=== PATIENT | male | born 1970 | race Caucasian/White ===

== ENCOUNTER 2018-08-27 17:17 | Emergency (ER) | payer BC ==
[~2018-08-27] VITALS: Ht 177.8 cm; Wt 122.7 kg
[~2018-08-27 17:17] MED LIST: ASPI-611 PO; ATOR20TA66 PO; FAMO-128 PO; LISI1TAB13 PO
[2018-08-27] MEDS ORDERED: diltiazem 5mg/ml 5ml inj. IV ONE (17:55)
[2018-08-27] MEDS ORDERED: enoxaparin 100mg/ml syringe SUBCUT ONE (17:55)
[2018-08-27 18:15] LABS: BASOPHILS # (AUTO) 0.1 X10'3 (0-0.2); BASOPHILS % (AUTO) 1.1 % (0-1); EOSINOPHILS # (AUTO) 0.4 X10'3 (0-0.9); EOSINOPHILS % (AUTO) 4.7 % (0-6); HEMATOCRIT 46.7 % (42.0-52.0); LYMPHOCYTES # (AUTO) 3.3 X10'3 (1.1-4.8); LYMPHOCYTES % (AUTO) 35.7 % (21-51); MEAN CORPUSCULAR HEMOGLOBIN 29.2 PG (27.0-31.0); MEAN CORPUSCULAR HGB CONC 34.4 g/dL (33.0-36.5); MONOCYTES # (AUTO) 0.6 X10'3 (0-0.9); MONOCYTES % (AUTO) 6.8 % (2-12); NEUTROPHILS # (AUTO) 4.8 X10'3 (1.8-7.7); NEUTROPHILS % (AUTO) 51.7 % (42-75); PLATELET COUNT 301 X10'3 (140-440); RED CELL DISTRIBUTION WIDTH 13.5 % (11.5-14.5); WHITE BLOOD COUNT 9.2 X10'3 (4.5-11.0)
[2018-08-27 18:31] LABS: ALANINE AMINOTRANSFERASE 39 U/L (12-78); ALBUMIN 3.5 G/DL (3.4-5.0); ALBUMIN/GLOBULIN RATIO 0.9 (1.1-1.5); ALKALINE PHOSPHATASE 69 IU/L (46-116); ANION GAP 10 (8-16); ASPARTATE AMINO TRANSFERASE 20 U/L (10-37); BILIRUBIN,TOTAL 0.4 MG/DL (0.1-1.0); BLOOD UREA NITROGEN 15 MG/DL (7-18); CALCIUM 8.6 MG/DL (8.5-10.1); CHLORIDE 103 MMOL/L (99-107); CREATININE 1.07 MG/DL (0.60-1.10); GLUCOSE 132 MG/DL (70-104); POTASSIUM 3.5 MMOL/L (3.5-5.1); SODIUM 138 MMOL/L (135-145); TOTAL CARBON DIOXIDE 24.9 MMOL/L (24-32); TOTAL PROTEIN 7.6 G/DL (6.4-8.2); eGFR 74 ML/MIN
[2018-08-27 18:38] LABS: PARTIAL THROMBOPLASTIN TIME 25 SECONDS (22-32); PROTHROMBIN TIME 9.8 SECONDS (9.0-12.0)
[2018-08-27] MEDS ORDERED: ondansetron/PF 4mg/2ml inj IV ONE (18:40)
[2018-08-27 18:41] LABS: PHOSPHORUS 2.9 MG/DL (2.3-4.5)
[2018-08-27] MEDS ORDERED: METO25TA6 PO (20:46)
[2018-08-27 21:20] VITALS: BP 144/89
== END 2018-08-27 21:22 | disposition home or self-care (01) ==
LOC: ER 17:18
DX: I48.91 Unspecified atrial fibrillation (principal); E78.00 Pure hypercholesterolemia, unspecified; I10 Essential (primary) hypertension; Z98.890 Other specified postprocedural states; Z88.8 Allergy status to other drugs, medicaments and biological substances; Z79.82 Long term (current) use of aspirin; Z79.899 Other long term (current) drug therapy
CPT/HCPCS: 36415; 71045; 80053; 83735; 84100; 84443; 84484; 85025; 85379; 85610; 85730; 93005; 96372; 96374; 96375; 99284; J2405; J1650; J3490

== ENCOUNTER 2020-01-14 17:15 | Emergency (ER) | payer BC ==
[~2020-01-14] VITALS: Ht 175.3 cm; Wt 119.5 kg
[~2020-01-14 17:15] MED LIST changes: -LISI1TAB13 PO; +LISI1TAB29 PO; +METO25TA6 PO
[2020-01-14 17:23] VITALS: BP 114/75
[2020-01-14] MEDS ORDERED: ondansetron 4mg rapidly disintigrating tab PO ONE (17:50)
[2020-01-14] MEDS ORDERED: morphine 4 MG/ML inj SYRINge IM ONE (17:50)
[2020-01-14] MEDS ORDERED: ketorolac tromethamine 15mg/ml inj. IM ONE (17:55)
--- NOTE | 2020-01-14 18:06 | NUR ---
Ultrasound in progress.
[2020-01-14] MEDS ORDERED: IBUP-1984 PO (18:44)
[2020-01-14] MEDS ORDERED: CYCL-1 PO (18:44)
== END 2020-01-14 19:00 | disposition home or self-care (01) ==
LOC: ER 17:15
DX: S86.812A Strain of other muscle(s) and tendon(s) at lower leg level, left leg, initial encounter (principal); M79.662 Pain in left lower leg; E78.00 Pure hypercholesterolemia, unspecified; I10 Essential (primary) hypertension; Z98.890 Other specified postprocedural states; Z88.8 Allergy status to other drugs, medicaments and biological substances; Z79.82 Long term (current) use of aspirin; Z79.899 Other long term (current) drug therapy; X58.XXXA Exposure to other specified factors, initial encounter; Y93.89 Activity, other specified; Y92.89 Other specified places as the place of occurrence of the external cause; Y99.8 Other external cause status
CPT/HCPCS: 76882; 96372; 99284; J1885; J2270

== ENCOUNTER 2020-02-13 06:20 | Inpatient (IN) | payer BC ==
[~2020-02-13] VITALS: Ht 175.3 cm; Wt 122.7 kg
[~2020-02-13 06:20] MED LIST changes: +CYCL-1 PO
--- NOTE | 2020-02-13 07:04 | NUR ---
Discussed pt's c/o DAVIS pain, 12/29 with emdm Janes; new order for Tylenol received.
[2020-02-13] MEDS ORDERED: acetaminophen 325mg tablet PO ONE (07:05)
[2020-02-13] MEDS ORDERED: ringers solution, lacted 1,000 ML IV ONE ×3 (08:35→14:35)
[2020-02-13] MEDS ORDERED: normal saline 1000ml 1,000 ML IV ONE (08:55)
[2020-02-13 09:03] LABS: BASOPHILS # (AUTO) 0.1 X10'3 (0-0.2); BASOPHILS % (AUTO) 0.3 % (0-1); EOSINOPHILS # (AUTO) 0.1 X10'3 (0-0.9); EOSINOPHILS % (AUTO) 0.3 % (0-6); HEMOGLOBIN 13.9 g/dl (14.0-17.9); LYMPHOCYTES # (AUTO) 0.9 X10'3 (1.1-4.8); LYMPHOCYTES % (AUTO) 3.7 % (21-51); MEAN CORPUSCULAR HEMOGLOBIN 28.4 PG (27.0-31.0); MEAN CORPUSCULAR HGB CONC 33.9 g/dL (33.0-36.5); MEAN CORPUSCULAR VOLUME 83.8 FL (78-98); MEAN PLATELET VOLUME 8.7 FL (7.4-10.4); MONOCYTES # (AUTO) 0.9 X10'3 (0-0.9); MONOCYTES % (AUTO) 3.6 % (2-12); NEUTROPHILS # (AUTO) 22.1 X10'3 (1.8-7.7); NEUTROPHILS % (AUTO) 92.1 % (42-75); PLATELET COUNT 257 X10'3 (140-440); RED BLOOD COUNT 4.89 X10'6 (4.70-6.10); RED CELL DISTRIBUTION WIDTH 12.9 % (11.5-14.5); WHITE BLOOD COUNT 24.1 X10'3 (4.5-11.0)
[2020-02-13 09:12] LABS: D-DIMER 0.23 MG/L FEU (0-0.50)
[2020-02-13 09:16] LABS: ALANINE AMINOTRANSFERASE 34 U/L (12-78); ALBUMIN 3.4 G/DL (3.4-5.0); ALBUMIN/GLOBULIN RATIO 0.9 (1.1-1.5); ALKALINE PHOSPHATASE 59 IU/L (46-116); ANION GAP 10 (8-16); ASPARTATE AMINO TRANSFERASE 18 U/L (10-37); BILIRUBIN,TOTAL 0.8 MG/DL (0.1-1.0); BLOOD UREA NITROGEN 15 MG/DL (7-18); BUN/CREATININE RATIO 12.4 (5.4-32.0); CALCIUM 8.3 MG/DL (8.5-10.1); CHLORIDE 103 MMOL/L (99-107); CREATININE 1.21 MG/DL (0.60-1.10); GLUCOSE 167 MG/DL (70-104); POTASSIUM 3.3 MMOL/L (3.5-5.1); SODIUM 137 MMOL/L (135-145); TOTAL CARBON DIOXIDE 24.1 MMOL/L (24-32); eGFR 64 ML/MIN
[2020-02-13 09:29] LABS: C-REACTIVE PROTEIN 2.84 MG/DL (0.0-0.5); FERRITIN 113 NG/ML (26-388); MAGNESIUM 1.6 MG/DL (1.5-2.4)
[2020-02-13] MEDS ORDERED: ketorolac trometh. 30mg/ml inj. IV ONE (09:30)
[2020-02-13] MEDS ORDERED: CefTRIAXone inj 2,000 MG in normal saline 100ml IV soln 100 ML IV ONE (09:45)
[2020-02-13 10:26] LABS: CLARITY,URINE CLEAR (Clear); COLOR,URINE YELLOW (Yellow); GLUCOSE, URINE NEGATIVE (Neg); KETONES,URINE NEGATIVE (Neg); LEUKOCYTE ESTERASE ,URINE NEGATIVE (Neg); NITRITES, URINE NEGATIVE (Neg); OCCULT BLOOD,URINE NEGATIVE (Neg); PH,URINE 8.5 (4.8-8.0); PROTEIN,URINE NEGATIVE (Neg)
[2020-02-13 10:27] LABS: UA COLLECTION TYPE URINAL
--- NOTE | 2020-02-13 11:00 | NUR ---
Discussed pt's possible COVID status and low potassium w/ edmd Janes. Per Janes, ok to stop isolation as he no longer views pt @ risk; no new orders r/t potassium.
[2020-02-13] MEDS ORDERED: morphine 4 MG/ML inj SYRINge IV ONE (12:10)
[2020-02-13] MEDS ORDERED: CELE-193 PO (14:08)
--- NOTE | 2020-02-13 14:15 | NUR ---
Pt gave verbal consent to update Ale Cummings which was provided. She will be picking up pt who is being dc'd.
[2020-02-13 15:06] LABS: BASOPHILS # (AUTO) 0.1 X10'3 (0-0.2); BASOPHILS % (AUTO) 0.2 % (0-1); EOSINOPHILS % (AUTO) 0.1 % (0-6); HEMATOCRIT 39.1 % (42.0-52.0); HEMOGLOBIN 13.2 g/dl (14.0-17.9); LYMPHOCYTES # (AUTO) 0.7 X10'3 (1.1-4.8); LYMPHOCYTES % (AUTO) 3.4 % (21-51); MEAN CORPUSCULAR HEMOGLOBIN 28.5 PG (27.0-31.0); MEAN CORPUSCULAR HGB CONC 33.8 g/dL (33.0-36.5); MEAN CORPUSCULAR VOLUME 84.2 FL (78-98); MEAN PLATELET VOLUME 8.8 FL (7.4-10.4); MONOCYTES % (AUTO) 4.6 % (2-12); NEUTROPHILS # (AUTO) 19.3 X10'3 (1.8-7.7); NEUTROPHILS % (AUTO) 91.7 % (42-75); PLATELET COUNT 222 X10'3 (140-440); RED BLOOD COUNT 4.64 X10'6 (4.70-6.10); WHITE BLOOD COUNT 21.1 X10'3 (4.5-11.0)
[2020-02-13] MEDS ORDERED: morphine 2 MG/ML inj. syringe IV PRN ×2 (15:55)
[2020-02-13] MEDS ORDERED: ondansetron/PF 4mg/2ml inj IV PRN (15:55)
[2020-02-13] MEDS ORDERED: acetaminophen 325mg tablet PO PRN (15:55)
[2020-02-13] MEDS ORDERED: magnesium hydroxide 30ml (MOM) UD suspension PO PRN (15:55)
[2020-02-13] MEDS ORDERED: HYDROcodone/acetaminophen 10/325mg tab PO PRN (15:55)
[2020-02-13] MEDS ORDERED: HYDROcodone/acetaminophen 5mg/325mg tablet PO PRN (15:55)
[2020-02-13] MEDS ORDERED: mag hydrox/Alum hydrox/simeth 30ml oral suspension PO PRN (15:55)
[2020-02-13] MEDS: normal saline 1000ml 1,000 ML IV SCH (16:16)
--- NOTE | 2020-02-13 16:55 | NUR ---
Problems reprioritized. Patient report given, questions answered & plan of care reviewed with syed Conway ED.
[2020-02-13] MEDS: acetaminophen 325mg tablet PO PRN ×2 (17:28→23:49)
[2020-02-13 17:35] VITALS: BP 128/68
[2020-02-13] MEDS ORDERED: ibuprofen 200mg tablet PO PRN (17:55)
--- NOTE | 2020-02-13 18:44 | NUR ---
Problems reprioritized. Patient report given, questions answered & plan of care reviewed with kimberly PELLETIER.
--- NOTE | 2020-02-13 18:49 | NUR ---
Patient in room PCU 3027. I have received report from Vanessa PELLETIER and had the opportunity to ask questions and assume patient care.
[2020-02-13] MEDS: ceFAZolin 2gm in dextrose, iso 50 ML IV SCH ×2 (19:06→23:51)
[2020-02-13 19:30] VITALS: BP 125/66
[2020-02-13 22:00] VITALS: BP 125/63
[2020-02-14] VITALS (7 sets, daily range): BP systolic 111–141; BP diastolic 68–82
[2020-02-14 05:59] LABS: BASOPHILS % (AUTO) 0.3 % (0-1); EOSINOPHILS % (AUTO) 0.1 % (0-6); HEMATOCRIT 38.2 % (42.0-52.0); LYMPHOCYTES # (AUTO) 1.6 X10'3 (1.1-4.8); LYMPHOCYTES % (AUTO) 12.3 % (21-51); MEAN CORPUSCULAR HEMOGLOBIN 28.9 PG (27.0-31.0); MEAN CORPUSCULAR VOLUME 84.9 FL (78-98); MEAN PLATELET VOLUME 9.2 FL (7.4-10.4); MONOCYTES % (AUTO) 7.5 % (2-12); NEUTROPHILS # (AUTO) 10.6 X10'3 (1.8-7.7); NEUTROPHILS % (AUTO) 79.8 % (42-75); PLATELET COUNT 219 X10'3 (140-440); RED CELL DISTRIBUTION WIDTH 13.2 % (11.5-14.5); WHITE BLOOD COUNT 13.3 X10'3 (4.5-11.0)
[2020-02-14 06:29] LABS: ALBUMIN 2.8 G/DL (3.4-5.0); ANION GAP 7 (8-16); BLOOD UREA NITROGEN 13 MG/DL (7-18); BUN/CREATININE RATIO 11.8 (5.4-32.0); CALCIUM 7.8 MG/DL (8.5-10.1); CHLORIDE 106 MMOL/L (99-107); GLUCOSE 120 MG/DL (70-104); POTASSIUM 3.2 MMOL/L (3.5-5.1); SODIUM 139 MMOL/L (135-145); TOTAL CARBON DIOXIDE 25.6 MMOL/L (24-32); eGFR 71 ML/MIN
--- NOTE | 2020-02-14 06:32 | NUR ---
Patient in room PCU 3027. I have received report from Brittany PELLETIER and had the opportunity to ask questions and assume patient care.
--- NOTE | 2020-02-14 06:38 | NUR ---
Problems reprioritized. Patient report given, questions answered & plan of care reviewed with Kelly PELLETIER.
[2020-02-14] MEDS ORDERED: CefTRIAXone 2gm/D5W 50ml 50 ML IV SCH (08:00)
[2020-02-14] MEDS: ceFAZolin 2gm in dextrose, iso 50 ML IV SCH ×3 (08:16→23:17)
[2020-02-14] MEDS: enoxaparin 40mg/0.4ml syringe SUBCUT SCH (08:17)
[2020-02-14] MEDS: normal saline 1000ml 1,000 ML IV SCH ×2 (08:36→11:07)
--- NOTE | 2020-02-14 08:37 | NUR ---
Non administered 0130 dose of NS for this patient, IVF already infusing per order, just clenaing up eMAR from previous shift. Will continue to monitor closely.
[2020-02-14] MEDS ORDERED: potassium CL 10mEq/100ml bag 100 ML IV PRN (09:15)
[2020-02-14] MEDS ORDERED: magnesium 4gm in 100ml NS 100 ML IV PRN (09:15)
[2020-02-14] MEDS ORDERED: potassium Cl 20 mEq SR tablet PO PRN (09:15)
[2020-02-14] MEDS ORDERED: magnesium Cl slow-release 64mg tablet PO PRN (09:15)
--- NOTE | 2020-02-14 09:17 | NUR ---
Spoke to Dr Batista re this patients plan of care, received verbal orders to start the K+/mag replacement protocol, will continue to monitor the patient closely.
[2020-02-14] MEDS: K and/or MAG REPLACEMENT MC SCH ×2 (09:18→19:29)
[2020-02-14 10:12] LABS: MAGNESIUM 1.7 MG/DL (1.5-2.4); POTASSIUM 3.1 MMOL/L (3.5-5.1)
[2020-02-14] MEDS: potassium Cl 20 mEq SR tablet PO PRN ×2 (10:25→14:35)
[2020-02-14] MEDS ORDERED: cyclobenzaprine 10mg tablet PO PRN (16:00)
--- NOTE | 2020-02-14 18:23 | NUR ---
Problems reprioritized. Patient report given, questions answered & plan of care reviewed with Lizbeth PELLETIER.
[2020-02-14] MEDS: metoprolol tartrate 25mg tablet PO SCH (19:58)
[2020-02-14] MEDS: lactobacillus rhamnosus 10,000 MMU CELLS/CAPSULE PO SCH (19:58)
[2020-02-15] VITALS: BP 141/80
[2020-02-15 02:00] VITALS: BP 98/64
[2020-02-15] MEDS: normal saline 1000ml 1,000 ML IV SCH ×2 (03:35→07:04)
[2020-02-15 06:00] VITALS: BP 130/79
--- NOTE | 2020-02-15 06:06 | NUR ---
REPORT GIVEN TO PRABHU HAMMOND.
[2020-02-15 06:10] LABS: BASOPHILS # (AUTO) 0.1 X10'3 (0-0.2); BASOPHILS % (AUTO) 0.8 % (0-1); EOSINOPHILS # (AUTO) 0.3 X10'3 (0-0.9); EOSINOPHILS % (AUTO) 3.1 % (0-6); HEMATOCRIT 37.8 % (42.0-52.0); HEMOGLOBIN 12.8 g/dl (14.0-17.9); LYMPHOCYTES # (AUTO) 2.4 X10'3 (1.1-4.8); LYMPHOCYTES % (AUTO) 29.8 % (21-51); MEAN CORPUSCULAR HEMOGLOBIN 28.6 PG (27.0-31.0); MEAN CORPUSCULAR HGB CONC 33.8 g/dL (33.0-36.5); MEAN CORPUSCULAR VOLUME 84.7 FL (78-98); MEAN PLATELET VOLUME 9.1 FL (7.4-10.4); MONOCYTES # (AUTO) 0.9 X10'3 (0-0.9); MONOCYTES % (AUTO) 11.4 % (2-12); NEUTROPHILS # (AUTO) 4.5 X10'3 (1.8-7.7); NEUTROPHILS % (AUTO) 54.9 % (42-75); PLATELET COUNT 227 X10'3 (140-440); RED BLOOD COUNT 4.46 X10'6 (4.70-6.10); RED CELL DISTRIBUTION WIDTH 12.9 % (11.5-14.5); WHITE BLOOD COUNT 8.2 X10'3 (4.5-11.0)
[2020-02-15 06:18] LABS: ALBUMIN 2.7 G/DL (3.4-5.0); ANION GAP 7 (8-16); BLOOD UREA NITROGEN 11 MG/DL (7-18); CALCIUM 7.9 MG/DL (8.5-10.1); CHLORIDE 108 MMOL/L (99-107); CREATININE 0.92 MG/DL (0.60-1.10); GLUCOSE 117 MG/DL (70-104); MAGNESIUM 2.1 MG/DL (1.5-2.4); POTASSIUM 3.6 MMOL/L (3.5-5.1); SODIUM 140 MMOL/L (135-145); TOTAL CARBON DIOXIDE 24.9 MMOL/L (24-32); eGFR 87 ML/MIN
--- NOTE | 2020-02-15 06:18 | NUR ---
Problems reprioritized. Patient report given, questions answered & plan of care reviewed with Lizbeth PELLETIER.
[2020-02-15] MEDS: enoxaparin 40mg/0.4ml syringe SUBCUT SCH (07:04)
[2020-02-15] MEDS: ceFAZolin 2gm in dextrose, iso 50 ML IV SCH (07:04)
[2020-02-15] MEDS: lactobacillus rhamnosus 10,000 MMU CELLS/CAPSULE PO SCH (07:05)
[2020-02-15] MEDS: metoprolol tartrate 25mg tablet PO SCH (07:05)
[2020-02-15] MEDS: K and/or MAG REPLACEMENT MC SCH (07:55)
[2020-02-15] MEDS ORDERED: atorvastatin 20mg tablet PO SCH (08:00)
[2020-02-15] MEDS ORDERED: aspirin 81mg tablet.DR PO SCH (08:00)
[2020-02-15] MEDS ORDERED: CEPH250T PO (08:07)
--- NOTE | 2020-02-15 09:32 | NUR ---
Spoke with Dr Batista, will not discharge patient until VL ultrasound performed and results available.
[2020-02-15 11:00] VITALS: BP 114/74
--- NOTE | 2020-02-15 12:52 | NUR ---
Sent a page to Dr Batista PAGER ID: [phone] MESSAGE: Kelly PELLETIER [phone] Michael Bailey, preliminary vascular report is up on imaging, no thrombus detected, do you want to wait until the official report is up to discharge? thanks!
--- NOTE | 2020-02-15 13:52 | NUR ---
Stable for discharge per MD orders, all discharge instructions reviewed with the patient and all questions answered, new prescription sent to [facility] on [address], Tele monitor and PIV discontinued, all belongings collected and sent with patient, left the unit at 1352 with RN in wheelchair
[2020-02-16] MEDS ORDERED: famotidine 20mg tablet PO SCH (08:00)
== END 2020-02-15 13:53 | disposition home or self-care (01) | DRG 872 ==
LOC: ER 06:21 → ED HOLD 15:54 → EDBEDREQ 16:33 → PCU 3S 16:55
PROVIDERS: ADMIT Internal Medicine; ATTEND Internal Medicine
DX: A41.9 Sepsis, unspecified organism (principal); L03.115 Cellulitis of right lower limb; Z68.41 Body mass index [BMI] 40.0-44.9, adult; E78.5 Hyperlipidemia, unspecified; R65.20 Severe sepsis without septic shock; Z20.828 Contact with and (suspected) exposure to other viral communicable diseases; E66.01 Morbid (severe) obesity due to excess calories; E87.6 Hypokalemia
CPT/HCPCS: 36415; 71045; 72131; 80048; 80053; 81003; 82728; 83605; 83735; 83880; 84132; 84145; 85025; 85379; 86140; 87040; 87081; 87635; 93005; 93971; 96361; 96365; 96366; 96375; 99285; G0378; J0696; J1650; J1885; J2270; J7030; J7120

== ENCOUNTER 2020-02-24 18:17 | Emergency (ER) | payer BC ==
[~2020-02-24] VITALS: Ht 175.3 cm; Wt 120.0 kg
[~2020-02-24 18:17] MED LIST changes: +CELE-193 PO; +CEPH250T PO
[2020-02-24] MEDS ORDERED: gabapentin 300mg capsule PO ONE (20:05)
[2020-02-24] MEDS ORDERED: cyclobenzaprine 10mg tablet PO ONE (20:05)
[2020-02-24] MEDS ORDERED: HYDROcodone/acetaminophen 5mg/325mg tablet PO ONE (22:00)
[2020-02-24] MEDS ORDERED: CYCL-1 PO (22:06)
[2020-02-24] MEDS ORDERED: GABA300C PO (22:06)
[2020-02-24 22:07] VITALS: BP 125/82
[2020-02-25] MEDS ORDERED: NAPR-56 PO (17:44)
[2020-02-25] MEDS ORDERED: OXYC-145 PO (17:44)
== END 2020-02-24 22:18 | disposition home or self-care (01) ==
LOC: ER 18:19
DX: M54.32 Sciatica, left side (principal); M54.5 Low back pain; E78.00 Pure hypercholesterolemia, unspecified; I10 Essential (primary) hypertension; G89.29 Other chronic pain; Z98.890 Other specified postprocedural states; Z79.82 Long term (current) use of aspirin; Z79.2 Long term (current) use of antibiotics; Z79.899 Other long term (current) drug therapy
CPT/HCPCS: 99284

== ENCOUNTER 2020-02-25 12:44 | Emergency (ER) | payer BC ==
[~2020-02-25] VITALS: Ht 175.3 cm; Wt 120.5 kg
[~2020-02-25 12:44] MED LIST changes: -CELE-193 PO; +GABA300C PO
[2020-02-25] MEDS ORDERED: normal saline 1000ML IV soln IVB ONE (13:05)
[2020-02-25] MEDS ORDERED: morphine 4 MG/ML inj SYRINge IV PRN (13:05)
[2020-02-25] MEDS ORDERED: ondansetron/PF 4mg/2ml inj IV ONE (13:05)
[2020-02-25 13:28] LABS: BASOPHILS # (AUTO) 0.1 X10'3 (0-0.2); BASOPHILS % (AUTO) 1.1 % (0-1); EOSINOPHILS # (AUTO) 0.2 X10'3 (0-0.9); EOSINOPHILS % (AUTO) 2.8 % (0-6); HEMATOCRIT 45.1 % (42.0-52.0); HEMOGLOBIN 15.2 g/dl (14.0-17.9); LYMPHOCYTES # (AUTO) 2.3 X10'3 (1.1-4.8); LYMPHOCYTES % (AUTO) 26.5 % (21-51); MEAN CORPUSCULAR HEMOGLOBIN 28.4 PG (27.0-31.0); MEAN CORPUSCULAR HGB CONC 33.7 g/dL (33.0-36.5); MEAN CORPUSCULAR VOLUME 84.3 FL (78-98); MEAN PLATELET VOLUME 8.3 FL (7.4-10.4); MONOCYTES # (AUTO) 0.6 X10'3 (0-0.9); MONOCYTES % (AUTO) 6.6 % (2-12); NEUTROPHILS # (AUTO) 5.4 X10'3 (1.8-7.7); PLATELET COUNT 342 X10'3 (140-440); RED BLOOD COUNT 5.35 X10'6 (4.70-6.10); RED CELL DISTRIBUTION WIDTH 13.2 % (11.5-14.5); WHITE BLOOD COUNT 8.6 X10'3 (4.5-11.0)
[2020-02-25] MEDS ORDERED: dexamethasone sod phosphate 10mg/ml inj IV STA (13:31)
[2020-02-25] MEDS ORDERED: ketorolac trometh. 30mg/ml inj. IV ONE (13:35)
[2020-02-25] MEDS ORDERED: diazepam inj 5 MG/ML inj. IV ONE ×2 (13:35→17:50)
[2020-02-25 13:43] LABS: ALANINE AMINOTRANSFERASE 34 U/L (12-78); ALBUMIN 3.9 G/DL (3.4-5.0); ALKALINE PHOSPHATASE 60 IU/L (46-116); ANION GAP 8 (8-16); ASPARTATE AMINO TRANSFERASE 22 U/L (10-37); BILIRUBIN,TOTAL 0.8 MG/DL (0.1-1.0); BLOOD UREA NITROGEN 18 MG/DL (7-18); BUN/CREATININE RATIO 15.4 (5.4-32.0); CALCIUM 8.9 MG/DL (8.5-10.1); CHLORIDE 100 MMOL/L (99-107); CREATININE 1.17 MG/DL (0.60-1.10); GLUCOSE 118 MG/DL (70-104); POTASSIUM 3.5 MMOL/L (3.5-5.1); SODIUM 137 MMOL/L (135-145); TOTAL CARBON DIOXIDE 29.5 MMOL/L (24-32); eGFR 66 ML/MIN
--- NOTE | 2020-02-25 14:21 | NUR ---
PT TO MRI VIA WHEELCHAIR
--- NOTE | 2020-02-25 15:08 | NUR ---
PT BACK FROM MRI
[2020-02-25 15:35] LABS: CLARITY,URINE CLEAR (Clear); COLOR,URINE YELLOW (Yellow); GLUCOSE, URINE NEGATIVE (Neg); KETONES,URINE NEGATIVE (Neg); LEUKOCYTE ESTERASE ,URINE NEGATIVE (Neg); NITRITES, URINE NEGATIVE (Neg); OCCULT BLOOD,URINE NEGATIVE (Neg); PROTEIN,URINE NEGATIVE (Neg); UROBILINOGEN,URINE 0.2 E.U/dL (0.2-1.0)
[2020-02-25 15:38] LABS: UA COLLECTION TYPE URINAL
[2020-02-25] MEDS ORDERED: OXYC-145 PO (17:44)
[2020-02-25] MEDS ORDERED: NAPR-56 PO (17:44)
[2020-02-25] MEDS ORDERED: morphine 4 MG/ML inj SYRINge IV ONE (17:50)
[2020-02-25 18:13] VITALS: BP 105/67
== END 2020-02-25 18:15 | disposition home or self-care (01) ==
LOC: ER 12:45
DX: M54.5 Low back pain (principal); M62.838 Other muscle spasm; M54.16 Radiculopathy, lumbar region; E78.00 Pure hypercholesterolemia, unspecified; I10 Essential (primary) hypertension; G89.29 Other chronic pain; Z98.890 Other specified postprocedural states; Z79.82 Long term (current) use of aspirin; Z79.2 Long term (current) use of antibiotics; Z79.899 Other long term (current) drug therapy
CPT/HCPCS: 36415; 72148; 80053; 81003; 85025; 96361; 96374; 96375; 96376; 99285; J1100; J1885; J2270; J2405; J3360; J7030

== ENCOUNTER 2020-11-01 23:52 | Inpatient (IN) | payer BC ==
[~2020-11-01] VITALS: Ht 175.3 cm; Wt 95.5 kg
[~2020-11-01 23:52] MED LIST changes: +LOP25T PO; -METO25TA6 PO; +OXYC-145 PO
[2020-11-02] VITALS (10 sets, daily range): BP systolic 91–107; BP diastolic 51–67
[2020-11-02] MEDS ORDERED: RIVA20TA PO (00:26)
[2020-11-02] MEDS ORDERED: nitroGLYCERIN 0.4mg SUBLingual tab SL PRN ×2 (00:30→10:50)
--- NOTE | 2020-11-02 00:40 | NUR ---
DR. STARKEY UPDATED THAT PT WITHI INCREASING "HEAVINESS' ACROSS HIS CHEST, THAT HR HAS BEEN DROPPING TO 47 BPM AND HIS SYSTOLIC BP DROPING TO 88. PTS HR W/EMS 89 AND SYSTOLIC BP 112. K IS 2.2. MD RAMOS ADTL FLUID BOLUS (PT HAS RECEIVED 500 CC' FROM EMS). NOW AT BEDSIDE.
[2020-11-02 00:45] LABS: BASOPHILS # (AUTO) 0.1 X10'3 (0-0.2); BASOPHILS % (AUTO) 0.6 % (0-1); EOSINOPHILS # (AUTO) 0.5 X10'3 (0-0.9); EOSINOPHILS % (AUTO) 4.7 % (0-6); HEMATOCRIT 40.1 % (42.0-52.0); HEMOGLOBIN 13.6 g/dl (14.0-17.9); LYMPHOCYTES % (AUTO) 35.7 % (21-51); MEAN CORPUSCULAR HEMOGLOBIN 28.8 PG (27.0-31.0); MEAN CORPUSCULAR VOLUME 84.7 FL (78-98); MEAN PLATELET VOLUME 9.7 FL (7.4-10.4); MONOCYTES # (AUTO) 1.1 X10'3 (0-0.9); MONOCYTES % (AUTO) 9.8 % (2-12); NEUTROPHILS # (AUTO) 5.5 X10'3 (1.8-7.7); NEUTROPHILS % (AUTO) 49.2 % (42-75); PLATELET COUNT 291 X10'3 (140-440); RED BLOOD COUNT 4.73 X10'6 (4.70-6.10); RED CELL DISTRIBUTION WIDTH 13.6 % (11.5-14.5); WHITE BLOOD COUNT 11.1 X10'3 (4.5-11.0)
[2020-11-02 00:51] LABS: ALANINE AMINOTRANSFERASE 32 U/L (12-78); ALBUMIN 3.4 G/DL (3.4-5.0); ALKALINE PHOSPHATASE 91 IU/L (46-116); ANION GAP 11 (8-16); ASPARTATE AMINO TRANSFERASE 17 U/L (10-37); BILIRUBIN,TOTAL 0.7 MG/DL (0.1-1.0); BLOOD UREA NITROGEN 10 MG/DL (7-18); BUN/CREATININE RATIO 9.7 (5.4-32.0); CALCIUM 8.9 MG/DL (8.5-10.1); CHLORIDE 106 MMOL/L (99-107); CREATININE 1.03 MG/DL (0.60-1.10); GLUCOSE 96 MG/DL (70-104); SODIUM 144 MMOL/L (135-145); TOTAL CARBON DIOXIDE 26.6 MMOL/L (24-32); TOTAL PROTEIN 6.8 G/DL (6.4-8.2); eGFR 77 ML/MIN
[2020-11-02 00:54] LABS: POTASSIUM 2.2 MMOL/L (3.5-5.1)
[2020-11-02] MEDS ORDERED: magnesium 2GM in 50ml NS 50 ML IV ONE (01:20)
[2020-11-02 01:32] LABS: MAGNESIUM 1.9 MG/DL (1.5-2.4)
[2020-11-02 01:35] LABS: POTASSIUM 2.9 MMOL/L (3.5-5.1)
[2020-11-02] MEDS: potassium CL 10mEq/100ml bag 100 ML IV SCH ×3 (01:47→03:51)
[2020-11-02] MEDS ORDERED: OMEP20TA23 PO (02:03)
[2020-11-02] MEDS ORDERED: VITA-268 PO (02:05)
--- NOTE | 2020-11-02 02:53 | NUR ---
Dr. Huff at bedside for admission. Pt awaiting IPA.
[2020-11-02] MEDS ORDERED: magnesium hydroxide 30ml (MOM) UD suspension PO PRN (03:05)
[2020-11-02] MEDS ORDERED: ondansetron/PF 4mg/2ml inj IV PRN (03:05)
[2020-11-02] MEDS ORDERED: potassium Cl 20 mEq SR tablet PO PRN (03:05)
[2020-11-02] MEDS ORDERED: mag hydrox/Alum hydrox/simeth 30ml oral suspension PO PRN (03:05)
[2020-11-02] MEDS ORDERED: magnesium Cl slow-release 64mg tablet PO PRN (03:05)
[2020-11-02] MEDS ORDERED: magnesium 4gm in 100ml NS 100 ML IV PRN (03:05)
[2020-11-02] MEDS ORDERED: potassium Cl 40MEQ/1/2NS 520ml 520 ML IV PRN ×2 (03:05)
[2020-11-02] MEDS ORDERED: magnesium 2GM in 50ml NS 50 ML IV PRN (03:05)
[2020-11-02] MEDS ORDERED: acetaminophen 325mg tablet PO PRN (03:05)
--- NOTE | 2020-11-02 04:46 | NUR ---
Patient in room ED 11. I have received report from Sana PELLETIER and had the opportunity to ask questions and assume patient care.
[2020-11-02] MEDS: potassium Cl 20mEq in NS 1,000 ML IV SCH ×2 (05:47→17:54)
--- NOTE | 2020-11-02 06:24 | NUR ---
Problems reprioritized. Patient report given, questions answered & plan of care reviewed with Sahara PELLETIER.
--- NOTE | 2020-11-02 06:42 | NUR ---
Patient in room ORTHO 4011. I have received report from Ariadne PELLETIER and had the opportunity to ask questions and assume patient care.
[2020-11-02] MEDS: K and/or MAG REPLACEMENT MC SCH ×2 (08:00→20:00)
[2020-11-02] MEDS: pantoprazole 40mg Tablet.DR PO SCH (08:10)
[2020-11-02] MEDS: atorvastatin 20mg tablet PO SCH (08:10)
[2020-11-02] MEDS: vitamin B comp w/Vit. C tab 1 TAB TABLET PO SCH (08:11)
--- NOTE | 2020-11-02 09:36 | NUR ---
I called lab to follow up about 08:00am K draw. He said that the specimen not received yet and that he is not sure if coating supervisor actually drawn it but he said he will let the coating supervisor know or may be send another coating supervisor
[2020-11-02] MEDS: potassium Cl 20 mEq SR tablet PO PRN ×2 (10:07→17:52)
[2020-11-02] MEDS ORDERED: metoprolol tartrate 1mg/ml inj IV PRN (10:50)
[2020-11-02] MEDS ORDERED: aminophylline 250mg/10ml inj. IV PRN (10:50)
[2020-11-02] MEDS ORDERED: regadenoson 0.4mg/5ml syringe IV PRN (10:50)
--- NOTE | 2020-11-02 11:14 | NUR ---
Patient was instructed to be NPO as patient will go for Stress Test probably today. Patient ate breakfast this morning. I also discussed with patient and at bedside the plan of care as patient is also going for other imaging studies like CT head, CTA head, MRI and MRA of head.
[2020-11-02] MEDS ORDERED: iohexol 350MG/ML 100ml bottle IV ONE (11:31)
--- NOTE | 2020-11-02 12:24 | NUR ---
Patient in room ORTHO 4011. I have received report from Sydnee Student Nurse and had the opportunity to ask questions and assume patient care.
--- NOTE | 2020-11-02 15:12 | NUR ---
Patient just left the room not too long ago (approx. 10 minutes) transported to [place] for stress test and then will go to MRI afterwards. renal technician notified about patient being off tele monitor
[2020-11-02] MEDS ORDERED: rivaroxaban 20mg tablet PO SCH (17:30)
--- NOTE | 2020-11-02 17:56 | NUR ---
Problems reprioritized. Patient report given, questions answered & plan of care reviewed with Kasey PELLETIER.
--- NOTE | 2020-11-02 18:45 | NUR ---
Problems reprioritized. Patient report given, questions answered & plan of care reviewed with Yuko PELLETIER.
[2020-11-03] MEDS: potassium Cl 20 mEq SR tablet PO PRN (00:23)
[2020-11-03 06:00] VITALS: BP 125/81
[2020-11-03] MEDS: potassium Cl 20mEq in NS 1,000 ML IV SCH ×2 (06:06→09:05)
[2020-11-03 07:03] LABS: BASOPHILS # (AUTO) 0.1 X10'3 (0-0.2); BASOPHILS % (AUTO) 0.7 % (0-1); EOSINOPHILS # (AUTO) 0.4 X10'3 (0-0.9); EOSINOPHILS % (AUTO) 5.4 % (0-6); HEMATOCRIT 37.5 % (42.0-52.0); HEMOGLOBIN 12.8 g/dl (14.0-17.9); LYMPHOCYTES # (AUTO) 2.4 X10'3 (1.1-4.8); LYMPHOCYTES % (AUTO) 31.9 % (21-51); MEAN CORPUSCULAR HEMOGLOBIN 29.8 PG (27.0-31.0); MEAN CORPUSCULAR VOLUME 87.7 FL (78-98); MEAN PLATELET VOLUME 10.1 FL (7.4-10.4); MONOCYTES # (AUTO) 0.5 X10'3 (0-0.9); MONOCYTES % (AUTO) 6.7 % (2-12); NEUTROPHILS # (AUTO) 4.1 X10'3 (1.8-7.7); NEUTROPHILS % (AUTO) 55.3 % (42-75); PLATELET COUNT 241 X10'3 (140-440); RED BLOOD COUNT 4.27 X10'6 (4.70-6.10); RED CELL DISTRIBUTION WIDTH 13.9 % (11.5-14.5); WHITE BLOOD COUNT 7.4 X10'3 (4.5-11.0)
[2020-11-03 07:16] LABS: ALANINE AMINOTRANSFERASE 29 U/L (12-78); ALBUMIN 2.8 G/DL (3.4-5.0); ALKALINE PHOSPHATASE 79 IU/L (46-116); ANION GAP 5 (8-16); ASPARTATE AMINO TRANSFERASE 21 U/L (10-37); BILIRUBIN,TOTAL 0.7 MG/DL (0.1-1.0); BLOOD UREA NITROGEN 8 MG/DL (7-18); BUN/CREATININE RATIO 10.8 (5.4-32.0); CALCIUM 8.3 MG/DL (8.5-10.1); CHLORIDE 114 MMOL/L (99-107); CREATININE 0.74 MG/DL (0.60-1.10); GLUCOSE 90 MG/DL (70-104); MAGNESIUM 2.2 MG/DL (1.5-2.4); SODIUM 148 MMOL/L (135-145); TOTAL CARBON DIOXIDE 29.1 MMOL/L (24-32); TOTAL PROTEIN 5.7 G/DL (6.4-8.2); eGFR > 90 ML/MIN
[2020-11-03] MEDS: atorvastatin 20mg tablet PO SCH (07:48)
[2020-11-03] MEDS: vitamin B comp w/Vit. C tab 1 TAB TABLET PO SCH (07:48)
[2020-11-03] MEDS: pantoprazole 40mg Tablet.DR PO SCH (07:49)
[2020-11-03] MEDS: K and/or MAG REPLACEMENT MC SCH (08:00)
--- NOTE | 2020-11-03 09:00 | NUR ---
Student Medication Administration: For this medication-pass time frame, all medication were reviewed, dispensed, administered and documented per hospital policy by SN Vitor.
[2020-11-03 10:00] VITALS: BP 109/67
[2020-11-03] MEDS ORDERED: POTA10TA36 PO (10:19)
--- NOTE | 2020-11-03 11:30 | NUR ---
Student Medication Administration: For this medication-pass time frame, all medication were reviewed, dispensed, administered and documented per hospital policy by SN Ana and primary care PRABHU Reynolds RN. Addendum: 11/03/20 at 1134 by July Melody - Instructor PRABHU WRONG PATIENT
--- NOTE | 2020-11-03 11:49 | NUR ---
Student documentation: I have reviewed and agree with all interventions, assessments performed and documented by SN Vitor.
== END 2020-11-03 11:35 | disposition home or self-care (01) | DRG 641 ==
LOC: ER 23:53 → ED HOLD 11-02 03:02 → ORTHO 4S 11-02 06:03
PROVIDERS: ADMIT Internal Medicine; ATTEND Family Medicine
PROC: 4A02XM4 Measurement of Cardiac Total Activity, External Approach (ICD-10-PCS; principal; 2020-11-02)
PROC: 3E073KZ Introduction of Other Diagnostic Substance into Coronary Artery, Percutaneous Approach (ICD-10-PCS; 2020-11-02)
DX: E87.6 Hypokalemia (principal); R07.9 Chest pain, unspecified; E78.00 Pure hypercholesterolemia, unspecified; I10 Essential (primary) hypertension; M54.9 Dorsalgia, unspecified; E11.9 Type 2 diabetes mellitus without complications; G89.29 Other chronic pain; E66.9 Obesity, unspecified; K21.9 Gastro-esophageal reflux disease without esophagitis; I48.91 Unspecified atrial fibrillation; Z82.49 Family history of ischemic heart disease and other diseases of the circulatory system; Z98.84 Bariatric surgery status; Z68.31 Body mass index [BMI] 31.0-31.9, adult; Z88.8 Allergy status to other drugs, medicaments and biological substances; Z79.899 Other long term (current) drug therapy; Z79.01 Long term (current) use of anticoagulants
CPT/HCPCS: 36415; 70496; 70498; 70544; 70551; 71045; 78452; 80053; 83735; 83880; 84132; 84484; 85025; 87081; 93005; 93017; 93306; 93308; 99285; A9500; G0378; J2785; J3475; J3480; Q9967

== ENCOUNTER 2025-05-31 17:57 | Emergency (ER) | payer OTHER, BC ==
[~2025-05-31] VITALS: Ht 175.3 cm; Wt 104.0 kg
[~2025-05-31 17:57] MED LIST changes: -ASPI-611 PO; -CEPH250T PO; -CYCL-1 PO; -FAMO-128 PO; -GABA300C PO; -LISI1TAB29 PO; -LOP25T PO; +OMEP20TA23 PO; -OXYC-145 PO; +POTA-206 PO; +RIVA20TA PO; +VITA-268 PO
[2025-05-31 18:02] VITALS: BP 129/82; PULSE 76; O2SAT 98
[2025-05-31 19:49] LABS: MEAN PLATELET VOLUME 9.3 FL (7.4-10.4); RED CELL DISTRIBUTION WIDTH 13.3 % (11.5-14.5)
[2025-05-31 19:53] LABS: CREATININE 0.83 MG/DL (0.60-1.10); TOTAL CARBON DIOXIDE 29.4 MMOL/L (24-32); eCRCL 102 ML/MIN; eGFR > 90 ML/MIN
--- NOTE | 2025-05-31 19:58 | Physician Documentation ---
History of Present Illness ~ Chief Complaint: Extremity Swelling Stated Complaint: CELLULITIS Time Seen by MD: 19:56 Primary Medical Doctor: [facility] Patient presents to the emergency room for evaluation of right lower extremity pain and swelling. History of DVT. He reports compliance with Eliquis. Denies shortness of breath. History of cellulitis to affected leg. Tetanus witin 5 years: No Medication Reconciliation Allergies: Uncoded Allergies: TAPE (Allergy, Unknown, 08/27/18) Scheduled Atorvastatin Calcium (Atorvastatin Calcium), 20 MG PO DAILY, (Reported) Losartan Potassium* (Cozaar*), 1 TAB PO DAILY, (Reported) Omeprazole Magnesium (Prilosec Otc), 1 TAB PO DAILY, (Reported) Rivaroxaban (Xarelto), 1 TAB PO DAILY, (Reported) Vitamin B Complex (B Complex), 1 TAB PO DAILY, (Reported) Discontinued Medications Potassium Chloride (K-Dur), 10 MEQ PO DAILY Discontinued Reason: patient no longer taking Past Medical History Past Medical History: Atrial Fibrillation, High Cholesterol, Hypertension, GERD, Diabetes, Chronic Back Pain Past Surgical History: other Patient History: Patient reports no known family medical history. Alcohol Use: None Drug Use: none Lives with: Spouse Lives In: Home Occupation: employed Review of Systems ROS All review of systems negative except as per HPI Physical Exam Vital Signs: Temperature: 97.6, Source: Temporal, Heart Rate: 76, Respiratory Rate: 16, BP: 129/82, Pulse Oximetry: 98, Weight: 104.000 Oxygen Flow Rate: 0 Physical Exam General: Patient is awake, alert, oriented x4 in no acute distress and well appearing.~ Head: Normocephalic and atraumatic. Eyes: Conjunctival normal. EOMI. PERRL. ENT: Mucous membranes moist. Neck: Supple, trachea is midline. Chest: Clear to auscultation bilaterally without rales, rhonchi, or wheezes. There is no accessory muscle use or retractions. Cardiac: RRR without murmurs, gallops, or rubs. Extremities: Significant swelling to right calf with associated tenderness to palpation. Good plethora Progress Results/Orders Results/Orders Orders - RAMNO HALE MD Urinalysis, Cult If Indicated (05/31/25 19:13) Straight Cath For Urine Sample (05/31/25 19:13) Vl Venous (05/31/25 20:04) Completed Orders - RAMON HALE MD Cbc/Diff (05/31/25 19:13) Procalcitonin (05/31/25 19:13) BMP (05/31/25 19:13) Vl Venous (05/31/25 20:04) Vital Signs 05/31/25 05/31/25 18:02 21:40 Temp 97.6 Pulse 76 Resp 16 18 B/P (MAP) 129/82 Pulse Ox 98 O2 Flow Rate 0 Laboratory Tests Test 05/31/25 19:30 05/31/25 21:55 White Blood Count 8.3 Red Blood Count 4.76 Hemoglobin 13.5 L Hematocrit 39.8 L Mean Corpuscular Volume 83.6 Mean Corpuscular Hemoglobin 28.4 Mean Corpuscular Hemoglobin Concent 34.0 Red Cell Distribution Width 13.3 Platelet Count 286 Mean Platelet Volume 9.3 Neutrophils (%) (Auto) 54.6 Lymphocytes (%) (Auto) 31.3 Monocytes (%) (Auto) 8.7 Eosinophils (%) (Auto) 4.3 Basophils (%) (Auto) 1.1 H Neutrophils # (Auto) 4.6 Lymphocytes # (Auto) 2.6 Monocytes # (Auto) 0.7 Eosinophils # (Auto) 0.4 Basophils # (Auto) 0.1 CBC Comment Sodium Level 141 Potassium Level 3.5 Chloride Level 106 Carbon Dioxide Level 29.4 Anion Gap 6 L Blood Urea Nitrogen 10 Creatinine 0.83 Estimated GFR/1.73 m2 > 90 BUN/Creatinine Ratio 12.0 Glucose Level 97 Calcium Level 8.3 L Albumin 4.0 Procalcitonin < 0.05 Chemistry Comments Urine Comment Medical Decision Making Additional information obtaine: old records Findings Patient presents to the emergency room with pain to his right lower extremity as per HPI. Differentials include but are not limited to DVT, Green's cyst, cellulitis, vascular insufficiency therefore labs and ultrasound ordered. Ultrasound shows cellulitis. Labs reassuring as are vitals and he had not feel patient requires IV antibiotics. ER precautions discussed. General Diff Dx:Considerations: Include: Abrasion, Contusion, Fracture, Hematoma, Laceration, Malunion, Neurovascular injury, Open fracture, Sprain, Ulcer, Other Knee Diff Dx:Considerations: Include: Abrasion, Arthritis, Contusion, DJD, Fracture-femur, Fracture-fibula, Fracture-patella, Fracture-tibia, Gout, Hematoma, Laceration, Meniscus injury, Neurovascular injury, Open fracture, Rheumatoid arthritis, Septic, Sprain, Sprain-MCL, Sprain-LCL, Sprain-ACL, Sprain-PCL, Other Ankle Diff Dx:Considerations: Include: Abrasion, Arthritis, Contusion, DJD, Fracture-metatarsal, Fracture-fibula, Fracture-tarsal, Fracture-tibia, Gout, Hematoma, Laceration, Malunion, Neurovascular injury, Nonunion, Open fracture, Osteomyelitis, Rheumatoid arthritis, Sprain, Septic, Ulcer, Other Foot Diff Dx:Considerations: Include: Abrasion, Arthritis, Cellulitis, Contusion, Dislocation, DJD, Fracture-metatarsal, Fracture-phalynx, Fracture- tarsal, Gout, Hematoma, Ingrown toenail, Laceration, Malunion, Neurovascular injury, Open fracture, Paronychia, Puncture, Rheumatoid, Sprain, Septic, Subungual hematoma, Ulcer, Other Toe Diff Dx:Considerations: Include: Abrasion, Cellulitis, Contusion, Dislocation, Felon, Fracture, Hematoma, Laceration, Neurovascular injury, Open fracture, Paronychia, Subungual hematoma, Other Departure Disposition: 01 HOME / SELF CARE / HOMELESS Impression: Primary Impression: Cellulitis of right leg Condition: Stable Referrals: NO PRIMARY CARE PROVIDER (PCP) Prescriptions Cephalexin*Monohydrate* (Keflex*) 500 Mg Capsule 1 CAP PO Q12H for 10 Days, #20 CAP Prov: RAMON HALE MD 05/31/25 Signature Scribe Signature: No scribe Attestation: The note accurately reflects work and decisions made by me.Ramon Hale MD 05/31/25 22:02 RAMON HALE MD May 31, 2025 19:58
[2025-05-31 21:40] VITALS: RESP 18
[2025-05-31] MEDS ORDERED: LOSA-415 PO (21:46)
[2025-05-31 22:02] LABS: LEUKOCYTE ESTERASE ,URINE NEGATIVE (Neg); NITRITES, URINE NEGATIVE (Neg); OCCULT BLOOD,URINE NEGATIVE (Neg)
[2025-05-31] MEDS ORDERED: CEPH-585 PO (22:02)
[2025-05-31 22:07] LABS: UA COLLECTION TYPE CLN CATCH MIDSTREAM
[2025-05-31 22:13] VITALS: TEMP 97.6
--- NOTE | 2025-05-31 22:20 | VASCULAR REPORT ---
RIGHT LOWER EXTREMITY VENOUS DUPLEX REASON FOR EXAMINATION: Right lower extremity pain and edema. History of right lower extremity DVT. COMPARISON: None TECHNIQUE: Using real-time freeze-frame technique with a high-frequency transducer, multiple longitudinal and transverse sections were obtained. Simultaneous color flow and spectral Doppler imaging was performed. FINDINGS: No intraluminal filling defect in the deep veins is identified. Normal venous compressibility is seen and there is flow augmentation. The peroneal veins are not well visualized due to edema in the right calf. Color flow Doppler imaging is unremarkable. IMPRESSION: No evidence of femorpopliteal deep venous thrombosis in the right lower extremity. The right peroneal veins are not well visualized due to edema in the calf.
== END 2025-05-31 22:15 | disposition home or self-care (01) ==
LOC: ER 17:58
DX: L03.115 Cellulitis of right lower limb (principal); E78.00 Pure hypercholesterolemia, unspecified; E11.9 Type 2 diabetes mellitus without complications; K21.9 Gastro-esophageal reflux disease without esophagitis; G89.29 Other chronic pain; I10 Essential (primary) hypertension; I48.91 Unspecified atrial fibrillation; Z86.718 Personal history of other venous thrombosis and embolism; Z79.899 Other long term (current) drug therapy
CPT/HCPCS: 36415; 80048; 81003; 84145; 85025; 93971; 99284